=== PATIENT | female | born 1960 | race Caucasian/White ===

== ENCOUNTER 2017-05-04 19:49 | Emergency (ER) | payer OTHER ==
[2017-05-04] MEDS ORDERED: ALBU8HFA IH (20:02)
[2017-05-04 22:15] VITALS: BP 126/76
== END 2017-05-04 22:23 | disposition home or self-care (01) ==
LOC: EMS 19:52
DX: S60.222A Contusion of left hand, initial encounter (principal); S40.212A Abrasion of left shoulder, initial encounter; R03.0 Elevated blood-pressure reading, without diagnosis of hypertension; J45.909 Unspecified asthma, uncomplicated; G89.29 Other chronic pain; V43.52XA Car driver injured in collision with other type car in traffic accident, initial encounter; Y93.89 Activity, other specified; Y92.89 Other specified places as the place of occurrence of the external cause; Y99.8 Other external cause status
CPT/HCPCS: 99284